=== PATIENT | female | born 1940 | race Two or more races ===

== ENCOUNTER 2019-01-26 13:19 | Outpatient (CLI) | payer OTHER | END 2019-01-26 13:40 | disposition home or self-care (01) | LOC: RAD 13:19 | DX: M17.0 Bilateral primary osteoarthritis of knee (principal); M25.469 Effusion, unspecified knee; M51.36 Other intervertebral disc degeneration, lumbar region; M48.00 Spinal stenosis, site unspecified; M41.30 Thoracogenic scoliosis, site unspecified; M46.1 Sacroiliitis, not elsewhere classified ==